=== PATIENT | female | born 1980 | race Two or more races ===

== ENCOUNTER 2024-05-11 04:20 | Emergency (ER) | payer BC ==
[~2024-05-11] VITALS: Ht 157.5 cm; Wt 66.8 kg
[2024-05-11] MEDS ORDERED: PRED20TA PO (04:45)
[2024-05-11 04:52] VITALS: BP 116/76; O2SAT 99
[2024-05-11] MEDS: dexamethasone 4mg/ml inj IM ONE (04:55)
[2024-05-11 05:03] VITALS: PULSE 79; RESP 15; TEMP 98.2
== END 2024-05-11 05:06 | disposition home or self-care (01) ==
LOC: ER 04:20
DX: T78.40XA Allergy, unspecified, initial encounter (principal); K21.9 Gastro-esophageal reflux disease without esophagitis; Z90.89 Acquired absence of other organs; Y92.89 Other specified places as the place of occurrence of the external cause
CPT/HCPCS: 96372; 99283; J1100